=== PATIENT | female | born 1980 ===

== ENCOUNTER 2018-02-22 20:27 | Emergency (ER) | payer OTHER ==
[2018-02-22 21:31] LABS: BILIRUBIN,URINE NEGATIVE (NEG); CLARITY,URINE CLEAR; COLOR,URINE YELLOW; GLUCOSE,URINE NEGATIVE (NEG); NITRITE,URINE NEGATIVE (NEG); PH,URINE 7.5; PROTEIN,URINE NEGATIVE (NEG-TRACE); UROBILINOGEN,URINE 0.2 mg/dL (0.2 mg/dL)
[2018-02-22 21:34] LABS: NEG OBC UR NEG; POS OBC UR POS; U PREG PATIENT NEGATIVE (NEG)
[2018-02-22 21:35] LABS: ADD MAN DIFF? NO
[2018-02-22 21:38] LABS: BACTERIA,URINE FEW /HPF (0-FEW); BASO # 0.1 x10^3/uL (0.0-0.2); BASO % 1 % (0-3); EOS # 0.1 x10^3/uL (0.0-0.7); EOS % 2 % (0-3); HEMATOCRIT 38.4 % (36.0-47.0); HEMOGLOBIN 13.2 g/dL (12.0-15.5); LYMPH # 1.3 x10^3/uL (1.0-4.8); LYMPH % 16 % (24-48); MEAN CORPUSCULAR HEMOGLOBIN 29 pg (25-35); MEAN CORPUSCULAR HGB CONC 35 g/dL (31-37); MEAN CORPUSCULAR VOLUME 84 fL (79-100); MONO # 0.4 x10^3/uL (0.0-1.1); MONO % 5 % (0-9); NEUT # 6.3 x10^3uL (1.8-7.7); NEUT % 77 % (31-73); PLATELET COUNT 416 x10^3/uL (140-400); RBC,URINE 0 /HPF (0-2); RED BLOOD COUNT 4.56 x10^6/uL (3.50-5.40); RED CELL DISTRIBUTION WIDTH 13.4 % (11.5-14.5); SQUAMOUS EPITHELIAL CELL,UR MOD /LPF; WHITE BLOOD COUNT 8.2 x10^3/uL (4.0-11.0)
[2018-02-22] MEDS: ONDANSETRON PF 4 MG/2 ML VIAL. IV ×2 (21:40→22:41)
[2018-02-22] MEDS ORDERED: CONTRAST GIVEN MC (21:45)
[2018-02-22] MEDS: fentaNYL PF VIAL 100 MCG/2 ML VIAL IV (21:45)
[2018-02-22 21:48] LABS: INR 1.5 (0.8-1.1); PARTIAL THROMBOPLASTIN TIME 42 SEC (24-38); PROTHROMBIN TIME PATIENT 17.8 SEC (11.7-14.0)
[2018-02-22] MEDS ORDERED: fentaNYL PF VIAL 100 MCG/2 ML VIAL IM (22:00)
[2018-02-22] MEDS ORDERED: IOHEXOL 300 MG/ML 100ML VIAL. IV (22:00)
[2018-02-22 22:12] LABS: ANION GAP 13 (6-14); BLOOD UREA NITROGEN 9 mg/dL (7-20); BUN/CREATININE RATIO 13 (6-20); CALCIUM 8.8 mg/dL (8.5-10.1); CARBON DIOXIDE 23 mmol/L (21-32); CHLORIDE 104 mmol/L (98-107); CREATININE 0.7 mg/dL (0.6-1.0); GFR 95.2; GLUCOSE 121 mg/dL (70-99); SODIUM 140 mmol/L (136-145)
[2018-02-22 22:19] LABS: ALBUMIN 3.9 g/dL (3.4-5.0); ALK PHOS 70 U/L (46-116); ALT (SGPT) 56 U/L (14-59); AST (SGOT) 36 U/L (15-37); TOTAL BILIRUBIN 0.4 mg/dL (0.2-1.0); TOTAL PROTEIN 7.7 g/dL (6.4-8.2)
[2018-02-22] MEDS: MORPHINE SULFATE 4 MG/ML DISP.SYRIN. IV (22:39)
== END 2018-02-23 00:19 | disposition home or self-care (01) ==
LOC: ER 02-23 00:19
DX: R10.9 Unspecified abdominal pain (principal); R11.2 Nausea with vomiting, unspecified
CPT/HCPCS: 36415; 74177; 80053; 81001; 81025; 85025; 85610; 85730; 87086; 96374; 96375; 96376; 99285-25; J2270; J2405; J3010